=== PATIENT | male | born 1955 | race Asian ===

== ENCOUNTER 2018-02-27 07:56 | Outpatient (CLI) | payer BC ==
--- NOTE | 2018-02-27 09:54 | ULT ---
GALLBLADDER ULTRASOUND: History: 63-year-old male with history of abdominal pain. FINDINGS: Liver echogenicity is very coarse and heterogeneous, evidence for nonspecific hepatic parenchymal pro cess. Gallbladder shows a thickened wall. There is at least fairly large gallstone in the neck of the gallbladder which was immobile. Common bile duct is 0.2 cm. Pancreas and right kidney were unremarka ble as visualized. IMPRESSION: Cholelithiasis with an immobile large gallstone in the neck in the gallbladder with gallbladder wall thickening. Very heterogenous liver echogenicity, evidence for nonspecific hepatic parenchymal proces s. No ductal dilatation. If there is concern for acute cholecystitis, follow up Nuclear Medicine hepa tobiliary scan is suggested. POS: [facility]
== END 2018-02-27 07:57 | disposition home or self-care (01) ==
LOC: ULT 07:56
PROVIDERS: ATTEND Family Medicine
DX: K80.12 Calculus of gallbladder with acute and chronic cholecystitis without obstruction (principal)
CPT/HCPCS: 76705